=== PATIENT | female | born 1965 | race Caucasian/White ===

== ENCOUNTER 2017-04-22 09:04 | Emergency (ER) | payer SELFPAY ==
[2017-04-22 09:13] VITALS: TEMP 98.6
--- NOTE | 2017-04-22 09:30 | EDPHY ---
H & P Smoking Status: Never smoked Time Seen by Provider: 04/22/17 09:20 HPI/ROS: CHIEF COMPLAINT: Right 5th finger injury HISTORY OF PRESENT ILLNESS: 52-year-old female presents to the emergency department with injury to her right 5th finger. Patient states that she was trying to get her cat out of the wood pile and crushed her right 5th finger. The incident happened around 2:00 a.m.. She is right-hand dominant. She is unable to fully extend her right 5th finger. Her last tetanus shot was 2 years ago. ROS: Denies numbness or tingling in her fingers, retained foreign body, injury to the other fingers. (Nessa Montiel) Past Medical/Surgical History: appendectomy (Nessa Montiel) Social History: Single (Nessa Montiel) Physical Exam: On examination the patient has a 1 cm laceration to the lateral aspect of the right 5th finger overlying PIP joint. Tender to palpate at the PIP joint she has limited extension and limited flexion of the right 5th finger specially the PIP joint. Nontender to palpate at the MCP or DIP joints. Normal sensation to light touch with normal 2 point discrimination. The other fingers do not appear injured. (Nessa Montiel) Constitutional: Initial Vital Signs Temperature (C) 37 C 04/22/17 09:11 Heart Rate 92 04/22/17 09:11 Respiratory Rate 20 04/22/17 09:11 Blood Pressure 89/71 L 04/22/17 09:11 O2 Sat (%) 99 04/22/17 09:11 O2 Delivery Mode Room Air Allergies/Adverse Reactions: No Known Allergies Allergy (Verified 04/22/17 09:10) Home Medications: Medication Instructions Recorded Cephalexin [Keflex] 500 mg PO QID #28 cap 04/22/17 MDM/Departure - MDM Procedures: Laceration repair. Verbal consent was obtained from the patient. The 1 cm laceration on the right 5th finger was anesthetized using 1% lidocaine with epinephrine. The wound was irrigated with saline, draped and explored to its base with a gloved finger. There were no deep structures involved. No tendon injury was identified. The wound was repaired with 5 0 Prolene, 2 sutures. The wound repair was simple. The procedure was performed by myself. (Rosin,Nessa M) ED Course/Re-evaluation: 52-year-old female presents with injury to her right pinky finger. She presents to the emergency department with laceration and inability to fully extend her finger. X-rays were negative for fracture. The wound is very clean. Patient requested closure. She is aware of the risk of infection. She was given prescription for Keflex. On examination I do not see an obvious tendon injury. She is unable to fully extend her finger however. It is possible that this could be related to soft tissue trauma. She was placed in [place] splint and given orthopedic hand surgical referral. Patient was also given wound care precautions. (Nessa Montiel) I did not see this patient while she was in the emergency department. However her care was discussed with the PA while the patient was in the department. I agree with treatment plan and management (Fuentes Griffith) - Depart Disposition: Home, Routine, Self-Care Clinical Impression: laceration right small finger, Possible tendon injury right finger Condition: Good Instructions: Care For Your Stitches (ED), Laceration (ED), Contusion in Adults (ED), Acute Wounds (ED) Additional Instructions: Keflex 500 mg 4 times daily to prevent infection for 1 week. You have no evidence of fracture on your x-ray. No obvious tendon injury although because you are holding your right 5th finger in flexion, it is possible that you have an extensor tendon injury. This also could possibly be due to some soft tissue trauma. You have been placed in a splint. Keep the splint on until follow-up with orthopedic hand surgeon next week. Return to the emergency department if he notices any signs or symptoms of infection such as redness, swelling, increased pain, fever, purulent drainage. Prescriptions: Cephalexin [Keflex] 500 mg PO QID #28 cap Referrals: Estrada Aparicio MD [Medical Doctor] - 1-2 days without fail (Orthopedic hand surgeon on-call)
[2017-04-22 10:49] VITALS: BP 128/70; PULSE 64; RESP 14; O2SAT 98
== END 2017-04-22 10:49 | disposition home or self-care (01) ==
PROC: 0HQFXZZ Repair Right Hand Skin, External Approach (ICD-10-PCS; principal; 2017-04-22)
DX: S61.216A Laceration without foreign body of right little finger without damage to nail, initial encounter (principal); W45.8XXA Other foreign body or object entering through skin, initial encounter
CPT/HCPCS: L3925